=== PATIENT | female | born 1990 | race Caucasian/White ===

== ENCOUNTER 2023-04-14 13:13 | Observation (INO) | payer MEDICAID ==
[~2023-04-14] VITALS: Ht 152 cm; Wt 67.3 kg
[2023-04-14] MEDS ORDERED: ONDANSETRON 4 MG/2 ML (SDV) Z0FRAN IVP ONE (13:30)
[2023-04-14] MEDS ORDERED: LACTATED RINGERS 1,000 ML IV STA (13:30)
[2023-04-14] MEDS ORDERED: fentaNYL INJ 100 MCG/2 ML AMP IVP STA (13:30)
[2023-04-14] MEDS ORDERED: HYOSCYAMINE 0.125 MG (LEVSIN) TAB SL ONE (13:30)
--- NOTE | 2023-04-14 13:39 | ED Abdominal Pain ---
General Chief Complaint: Abdominal/GI Problems Stated Complaint: DIARRHEA Nursing Triage Note: PT AMB TO [facility] 10 WITH C/O DIARRHIA SINCE YESTERDAY MORNING AND UNABLE TO EAT DUE TO STOMACH PAINS. PT TOOK TUMS WITHOUT RELIEF Source of Information: Patient Exam Limitations: No Limitations History of Present Illness Date Seen by Provider: April 14, 2023 Time Seen by Provider: 13:21 Initial Comments Here with report of upper abdominal pain that she describes as cramping and diarrhea. She has had numerous episodes of diarrhea since yesterday. Has had vomiting this morning. Denies blood in vomit or stool. Denies fever or chills. Never had anything like this before. Does have history of cholecystectomy. She usually smokes but has not been able to smoke today because of the illness. Timing/Duration: 12-24 Hours Severity/Quality: Moderate, Cramping Location: RUQ, LUQ, Epigastric Radiation: No Radiation Activities at Onset: None Modifying Factors: Improves With Defecating; Worsens With Eating; Improves With Vomiting Associated Symptoms: Denies Symptoms Allergies and Home Medications Allergies Coded Allergies: No Known Drug Allergies (Unverified , 04/14/23) Patient Home Medication List Home Medication List Reviewed: Yes Review of Systems Review of Systems Constitutional: No chills, No fever EENTM: No Nose Congestion, No Throat Pain Respiratory: Denies Cough, Denies Shortness of Air Cardiovascular: No Symptoms Reported Gastrointestinal: Abdominal Pain, Diarrhea, Nausea, Vomiting Genitourinary: No Symptoms Reported Musculoskeletal: No back pain, No muscle pain Psychiatric/Neurological: No Symptoms Reported Past Riqywck-Lptbwz-Llfloo Hx Patient Social History Tobacco Use?: Yes Tobacco type used: Cigarettes Substance use?: No Alcohol Use?: Yes Alcohol Frequency: Once in a while Immunizations Up To Date First/Initial COVID19 Vaccinat: YES Second COVID19 Vaccination Harrison: YES Past Medical History Surgery/Hospitalization HX: RITA, TONSILS Gallbladder, Tonsillectomy Respiratory: No Cardiac: No Neurological: No Gastrointestinal: No Musculoskeletal: No Family Medical History Reviewed Nursing Family Hx Physical Exam Vital Signs Vital Signs - First Documented 04/14/23 13:23 Temp 36.1 Pulse 88 Resp 18 B/P (MAP) 97/70 (79) Pulse Ox 99 O2 Delivery Room Air Capillary Refill : Height/Weight/BMI Height: '" Weight: lbs. oz. kg; 31.00 BMI Method: General Appearance: WD/WN, no apparent distress Neck: full range of motion, supple Respiratory: lungs clear, normal breath sounds Cardiovascular: regular rate, rhythm, no murmur Gastrointestinal: normal bowel sounds, soft; No guarding, No rebound; tenderness Extremities: non-tender, normal inspection Back: normal inspection, no CVA tenderness, no vertebral tenderness Neurologic/Psychiatric: alert, oriented x 3 Skin: normal color, warm/dry Focused Exam Lactate Level 04/14/23 15:24: Lactic Acid Level 1.47 Lactic Acid Level Laboratory Tests Test 04/14/23 15:24 Lactic Acid Level 1.47 MMOL/L (0.50-2.00) Progress/Results/Core Measures Results/Orders Lab Results Laboratory Tests Test 04/14/23 13:25 04/14/23 14:22 04/14/23 15:24 Range/Units White Blood Count 15.6 H 4.3-11.0 10^3/uL Red Blood Count 4.48 3.80-5.11 10^6/uL Hemoglobin 13.5 11.5-16.0 g/dL Hematocrit 39 35-52 % Mean Corpuscular Volume 87 80-99 fL Mean Corpuscular Hemoglobin 30 25-34 pg Mean Corpuscular Hemoglobin Concent 35 32-36 g/dL Red Cell Distribution Width 12.7 10.0-14.5 % Platelet Count 265 130-400 10^3/uL Mean Platelet Volume 9.9 9.0-12.2 fL Immature Granulocyte % (Auto) 0 % Neutrophils (%) (Auto) 87 H 42-75 % Lymphocytes (%) (Auto) 9 L 12-44 % Monocytes (%) (Auto) 4 0-12 % Eosinophils (%) (Auto) 0 0-10 % Basophils (%) (Auto) 0 0-10 % Neutrophils # (Auto) 13.5 H 1.8-7.8 10^3/uL Lymphocytes # (Auto) 1.4 1.0-4.0 10^3/uL Monocytes # (Auto) 0.5 0.0-1.0 10^3/uL Eosinophils # (Auto) 0.0 0.0-0.3 10^3/uL Basophils # (Auto) 0.0 0.0-0.1 10^3/uL Immature Granulocyte # (Auto) 0.1 0.0-0.1 10^3/uL Neutrophils % (Manual) 86 % Lymphocytes % (Manual) 10 % Monocytes % (Manual) 4 % Eosinophils % (Manual) 0 % Basophils % (Manual) 0 % Band Neutrophils 0 % Blood Morphology Comment NORMAL Sodium Level 134 L 135-145 MMOL/L Potassium Level 3.4 L 3.6-5.0 MMOL/L Chloride Level 102 98-107 MMOL/L Carbon Dioxide Level 19 L 21-32 MMOL/L Anion Gap 13 5-14 MMOL/L Blood Urea Nitrogen 9 7-18 MG/DL Creatinine 0.84 0.60-1.30 MG/DL Estimat Glomerular Filtration Rate 95 BUN/Creatinine Ratio 11 Glucose Level 104 70-105 MG/DL Calcium Level 9.8 8.5-10.1 MG/DL Corrected Calcium 9.6 8.5-10.1 MG/DL Magnesium Level 1.8 1.6-2.4 MG/DL Total Bilirubin 0.4 0.1-1.0 MG/DL Aspartate Amino Transf (AST/SGOT) 13 5-34 U/L Alanine Aminotransferase (ALT/SGPT) 13 0-55 U/L Alkaline Phosphatase 73 40-136 U/L C-Reactive Protein High Sensitivity 14.97 H 0.00-0.50 MG/DL Total Protein 7.3 6.4-8.2 GM/DL Albumin 4.2 3.2-4.5 GM/DL Lipase 29 8-78 U/L Serum Test, Qualitative NEGATIVE NEGATIVE Urine Color ORANGE Urine Clarity CLOUDY Urine pH 6.0 5-9 Urine Specific [place] >=1.030 1.016-1.022 Urine Protein 2+ H NEGATIVE Urine Glucose (UA) NEGATIVE NEGATIVE Urine Ketones 1+ H NEGATIVE Urine Nitrite NEGATIVE NEGATIVE Urine Bilirubin 1+ H NEGATIVE Urine Urobilinogen 0.2 < = 1.0 MG/DL Urine Leukocyte Esterase TRACE H NEGATIVE Urine RBC (Auto) 3+ H NEGATIVE Urine RBC 50-100 H /HPF Urine WBC NONE /HPF Urine Squamous Epithelial Cells RARE /HPF Urine Crystals NONE /LPF Urine Bacteria NEGATIVE /HPF Urine Casts NONE /LPF Urine Mucus NEGATIVE /LPF Urine Culture Indicated NO Lactic Acid Level 1.47 0.50-2.00 MMOL/L My Orders Orders - BUZZ STODDARD MD Cbc With Automated Diff (04/14/23 13:30) Comprehensive Metabolic Panel (04/14/23 13:30) Hs C Reactive Protein (04/14/23 13:30) Magnesium (04/14/23 13:30) Ua Culture If Indicated (04/14/23 13:30) Ondansetron Injection (Zofran Injectio (04/14/23 13:30) Lactated Ringers (Lr 1000 Ml Iv Solution (04/14/23 13:30) Hyoscyamine Sl Tablet (Levsin Sl Tablet) (04/14/23 13:30) Ed Iv/Invasive Line Start (04/14/23 13:30) Fentanyl Inj (Sublimaze Injection) (04/14/23 13:30) Hcg,Qualitative Serum (04/14/23 13:40) Lipase (04/14/23 13:40) Manual Differential (04/14/23 13:25) Ct Abdomen/Pelvis W (04/14/23 14:17) Iohexol Injection (Omnipaque 350 Mg/Ml 1 (04/14/23 14:30) Received Contrast (Hold Metformin- Contr (04/14/23 14:30) Ns (Ivpb) (Sodium Chloride 0.9% Ivpb Bag (04/14/23 14:30) Lactic Acid Analyzer (04/14/23 15:14) Blood Culture (04/14/23 15:14) Ed Iv/Invasive Line Start (04/14/23 15:14) Ns Iv 1000 Ml (Sodium Chloride 0.9%) (04/14/23 15:15) Ceftriaxone Iv/Im (Rocephin Iv/Im) (04/14/23 15:22) Metronidazole 500mg/100ml Ivpb (Flagyl 5 (04/14/23 15:30) Ed Admission (Communication) (04/14/23 15:22) Code/Resuscitation (04/14/23 15:22) Medications Given in ED Current Medications Medications Dose Ordered Sig/Mireya Route Start Time Stop Time Status Last Admin Dose Admin Hyoscyamine Sulfate 0.125 mg ONCE ONCE SL 04/14/23 13:30 04/14/23 13:32 DC 04/14/23 13:41 0.125 MG Iohexol 100 ml ONCE ONCE IV 04/14/23 14:30 04/14/23 14:31 DC 04/14/23 14:29 80 ML Metronidazole 100 ml @ 100 mls/hr ONCE ONCE IV 04/14/23 15:30 04/14/23 16:29 DC 04/14/23 16:13 100 MLS/HR Ondansetron HCl 4 mg ONCE ONCE IVP 04/14/23 13:30 04/14/23 13:32 DC 04/14/23 13:41 4 MG Sodium Chloride 100 ml ONCE ONCE IV 04/14/23 14:30 04/14/23 14:31 DC 04/14/23 14:29 100 ML Sodium Chloride 1,000 ml @ 0 mls/hr Q0M ONCE IV 04/14/23 15:15 04/14/23 15:19 DC 04/14/23 15:36 1,000 MLS/HR Vital Signs/I&O 04/14/23 13:23 Temp 36.1 Pulse 88 Resp 18 B/P (MAP) 97/70 (79) Pulse Ox 99 O2 Delivery Room Air Blood Pressure Mean: 79 Progress Progress Note : Progress Note Seen and evaluated. IV, labs including CBC, CMP, magnesium and lipase ordered. We will check CRP as well. UA ordered. Normal saline 1 L bolus. Zofran 4 mg IV, Levsin 0.125 mg p.o. and fentanyl 50 mcg IV ordered. Monitor patient. Differential diagnosis includes pancreatitis, bowel inflammation, viral or bacterial enteritis, electrolyte abnormality, dehydration 1417: CBC reviewed and shows elevated white count. Chemistries reviewed and shows slight decrease in potassium but marked increase in CRP. Normal serum creatinine and LFTs. UA does not show any indication of infection. Lipase is negative. We will go ahead and get CT abdomen and pelvis with contrast given the marked increase in white count and CRP. Patient's pain is somewhat improved now. Monitor patient. 1450: Thickening of colon noted without free air or abscess on CT abdomen pelvis on my interpretation. Pending radiology report. 1520: I did discuss the case with Dr. Byrd as CT sc scan results note pancolitis per radiology report. Dr. Byrd is on-call for surgery. We discussed these results. Given that she is still having the cramping, although better, she would benefit from further fluid management and antibiotics given the elevated white count and CT findings. He agrees. I have ordered blood cultures and lactic acid due to concerns for sepsis. We will initiate Rocephin 1 g IV and Flagyl 500 mg IV after blood cultures drawn. I have ordered repeat fluid bolus with normal saline 1 L bolus. This will bring her to close to 30 mL/kg and should be an adequate amount of fluids. I do anticipate her lactic acid will be elevated due to vomiting and volume depletion but she does not show signs of severe sepsis or septic shock. I did discuss admission with the patient and friend and they agree to admission. I did discuss the case with Dr. Puente who is on-call for [facility] service and she accepts patient for admission, observation status. Patient request full code. Diagnostic Imaging Diagonstic Imaging: CT Plain Films/CT/US/NM/MRI: abdomen, pelvis Comments [facility], [place] NAME: CANDIE ESPOSITO [employer] REC#: [id number] PT STATUS: REG ER : 1990 PHYSICIAN: BUZZ STODDARD MD ADMIT DATE: 04/14/23/ER Draft Date of Exam:04/14/23 CT ABDOMEN/PELVIS W EXAMINATION: CT abdomen and pelvis with intravenous contrast. TECHNIQUE: Multiple contiguous axial images were obtained through the abdomen and pelvis after the uneventful administration of intravenous contrast. All CT scans use one or more of the following dose optimizing techniques: automated exposure control, MA and/or KvP adjustment based on patient size and exam type or iterative reconstruction. HISTORY: Abdominal pain COMPARISON: None available. FINDINGS: Limited views of the lower thorax are unremarkable. The liver is normal without focal lesion. There is no biliary ductal dilation. Gallbladder is absent. Pancreas is normal. Spleen is normal. Adrenal glands are normal. The kidneys are normal. There is no hydronephrosis. Urinary bladder is normal. There is pancolonic wall thickening with mucosal hyperenhancement and surrounding stranding in keeping with colitis. There is a lipoma in the subcutaneous tissues of the right back. No free fluid or air. No abdominal or pelvic lymphadenopathy. Aorta is normal in caliber without aneurysm. There are no suspicious osseus lesions. IMPRESSION: 1. Pancolitis which may be infectious or secondary to inflammatory bowel disease. Dictated on workstation # [id number] Dict: 04/14/23 1443 Trans: 04/14/23 1449 [facility] [id number] Interpreted by: STEPHANIE MCNEIL MD Electronically signed by: Departure Communication (Admissions) Time/Spoke to Admitting Phy: 15:19 Time/Spoke to Consulting Phy: 15:15 Impression Primary Impression: Pancolitis Additional Impression: Nausea vomiting and diarrhea Disposition: ADMITTED INPATIENT Condition: Stable Admissions Decision to Admit Reason: Admit from ER (General) Decision to Admit/Date: April 14, 2023 Time/Decision to Admit Time: 15:19 Departure-Patient Inst. Referrals: GEE GAMBOA APRN (PCP/Family) Primary Care Physician BUZZ STODDARD MD April 14, 2023 13:39
[2023-04-14 13:41] LABS: BASOPHILS % (AUTO) 0 % (0-10); EOSINOPHILS % (AUTO) 0 % (0-10); HEMATOCRIT 39 % (35-52); HEMOGLOBIN 13.5 g/dL (11.5-16.0); LYMPHOCYTES # (AUTO) 1.4 10^3/uL (1.0-4.0); LYMPHOCYTES % (AUTO) 9 % (12-44); MEAN CORPUSCULAR HEMOGLOBIN 30 pg (25-34); MEAN CORPUSCULAR HGB CONC 35 g/dL (32-36); MEAN CORPUSCULAR VOLUME 87 fL (80-99); MEAN PLATELET VOLUME 9.9 fL (9.0-12.2); MONOCYTES # (AUTO) 0.5 10^3/uL (0.0-1.0); MONOCYTES % (AUTO) 4 % (0-12); NEUTROPHILS # (AUTO) 13.5 10^3/uL (1.8-7.8); NEUTROPHILS % (AUTO) 87 % (42-75); PLATELET COUNT 265 10^3/uL (130-400); WHITE BLOOD COUNT 15.6 10^3/uL (4.3-11.0)
[2023-04-14 13:53] LABS: ALBUMIN 4.2 GM/DL (3.2-4.5); POTASSIUM 3.4 MMOL/L (3.6-5.0)
[2023-04-14 13:54] LABS: CALCIUM 9.8 MG/DL (8.5-10.1)
[2023-04-14 13:56] LABS: TOTAL PROTEIN 7.3 GM/DL (6.4-8.2)
[2023-04-14 13:57] LABS: BILIRUBIN,TOTAL 0.4 MG/DL (0.1-1.0)
[2023-04-14 13:59] LABS: CREATININE SERUM 0.84 MG/DL (0.60-1.30)
[2023-04-14 14:02] LABS: BAND NEUTROPHILS 0 %; BASOPHILS % (MANUAL) 0 %; EOSINOPHILS % (MANUAL) 0 %; LYMPHOCYTES % (MANUAL) 10 %; MAGNESIUM 1.8 MG/DL (1.6-2.4); MONOCYTES % (MANUAL) 4 %; NEUTROPHILS % (MANUAL) 86 %; RBC MORPH NORMAL
[2023-04-14] MEDS ORDERED: NS 100 ML (IVPB) BAG IV ONE (14:30)
[2023-04-14] MEDS ORDERED: HOLD METFORMIN - RECEIVED CONTRAST 20 ML VIAL IV SCH (14:30)
[2023-04-14] MEDS ORDERED: IOHEXOL 350 MG/ML 100 ML (OMNIPAQUE 350) VIAL IV ONE (14:30)
[2023-04-14 14:34] LABS: CLARITY,URINE CLOUDY; COLOR,URINE ORANGE; GLUCOSE, URINE (UA) NEGATIVE (NEGATIVE); KETONES,URINE 1+ (NEGATIVE); LEUKOCYTE ESTERASE ,URINE TRACE (NEGATIVE); NITRITE,URINE NEGATIVE (NEGATIVE); PROTEIN,URINE 2+ (NEGATIVE)
[2023-04-14 14:44] LABS: BILIRUBIN,URINE 1+ (NEGATIVE); RBC,URINE 50-100 /HPF
[2023-04-14 14:45] LABS: BACTERIA,URINE NEGATIVE /HPF; SQUAMOUS EPITHELIAL CELL,UR RARE /HPF
--- NOTE | 2023-04-14 14:51 | Diagnostic Imaging Report ---
EXAMINATION: CT abdomen and pelvis with intravenous contrast. TECHNIQUE: Multiple contiguous axial images were obtained through the abdomen and pelvis after the uneventful administration of intravenous contrast. All CT scans use one or more of the following dose optimizing techniques: automated exposure control, MA and/or KvP adjustment based on patient size and exam type or iterative reconstruction. HISTORY: Abdominal pain COMPARISON: None available. FINDINGS: Limited views of the lower thorax are unremarkable. The liver is normal without focal lesion. There is no biliary ductal dilation. Gallbladder is absent. Pancreas is normal. Spleen is normal. Adrenal glands are normal. The kidneys are normal. There is no hydronephrosis. Urinary bladder is normal. There is pancolonic wall thickening with mucosal hyperenhancement and surrounding stranding in keeping with colitis. There is a lipoma in the subcutaneous tissues of the right back. No free fluid or air. No abdominal or pelvic lymphadenopathy. Aorta is normal in caliber without aneurysm. There are no suspicious osseus lesions. IMPRESSION: 1. Pancolitis which may be infectious or secondary to inflammatory bowel disease. Dictated by: Dictated on workstation # [id number]
[2023-04-14] MEDS ORDERED: NS IV 1000 ML 1,000 ML IV ONE (15:15)
[2023-04-14] MEDS ORDERED: cefTRIAXone IV/IM 1,000 MG in NS (IVPB) 50 ML IV STA (15:22)
[2023-04-14] MEDS ORDERED: metroNIDAZOLE 500MG/100ML IVPB 100 ML IV ONE (15:30)
[2023-04-14] MEDS ORDERED: ONDANSETRON 4 MG/2 ML (SDV) Z0FRAN IV PRN (16:45)
[2023-04-14] MEDS ORDERED: CALCIUM CARBONATE 500 MG (TUMS) TAB.CHEW PO PRN (16:45)
[2023-04-14] MEDS ORDERED: ANTACID SUSP 30 ML UDC (MYLANTA) PO PRN (16:45)
[2023-04-14] MEDS ORDERED: polyethylene glycoL POWDER 17 GM (MIRALAX) PACK PO PRN (16:45)
[2023-04-14] MEDS ORDERED: ALPRAZolam 0.5 MG (XANAX) TAB PO PRN (16:45)
[2023-04-14] MEDS ORDERED: diphenhydrAMINE 50 MG/ML INJ (BENADRYL) IVP PRN (16:45)
[2023-04-14] MEDS ORDERED: ONDANSETRON 4 MG (ZOFRAN) ORAL DISSOLVE TAB PO PRN (16:45)
[2023-04-14] MEDS ORDERED: HYDROmorphone 2 MG/ML VIAL (DILAUDID) IV PRN (16:45)
[2023-04-14] MEDS ORDERED: diphenhydrAMINE 25 MG TAB (BENADRYL) PO PRN (16:45)
[2023-04-14] MEDS ORDERED: MELATONIN 3 MG TABLET PO PRN (16:45)
[2023-04-14] MEDS ORDERED: ACETAMINOPHEN 325 MG TABLET PO PRN (16:45)
[2023-04-14] MEDS ORDERED: MILK OF MAGNESIA 400 MG/5 ML 30 ML UDC PO PRN (16:45)
[2023-04-14] MEDS ORDERED: BISACODYL 10 MG SUPP (DULCOLAX) PR PRN (16:45)
[2023-04-14] MEDS ORDERED: LACTULOSE SYRUP 10GM/15ML (ENULOSE) 30ML UDC PO PRN (16:45)
[2023-04-14 16:51] VITALS: BP 92/64
[2023-04-14] MEDS: ENOXAPARIN 40 MG/0.4 ML (LOVENOX) SYR SC SCH (18:01)
[2023-04-14] MEDS: NS IV 1000 ML 1,000 ML IV SCH (18:01)
[2023-04-14] MEDS ORDERED: RT-ALBUTEROL/IPRATROPIUM 3 ML (DUONEB) VIAL INH PRN (18:45)
[2023-04-14 19:11] VITALS: BP 91/59
[2023-04-14] MEDS: DOCUSATE SODIUM 100 MG (COLACE) CAP PO SCH (19:50)
[2023-04-14] MEDS: SENNOSIDES 8.6 MG (SENOKOT) TAB PO SCH (19:50)
[2023-04-14] MEDS: metroNIDAZOLE 500MG/100ML IVPB 250 MG in EMPTY IV BAG (PVC) 1 EA IV SCH (22:28)
[2023-04-14 23:56] VITALS: BP 86/53
[2023-04-15] MEDS: NS IV 1000 ML 1,000 ML IV SCH (01:32)
[2023-04-15 03:33] VITALS: BP 93/56
--- NOTE | 2023-04-15 05:21 | History & Physical-Hospitalist ---
History of Present Illness HPI/Chief Complaint CC: Abdominal pain from colitis HPI: This is a 33yoWF transitioning to a male named "Inocente" who presented to the ER with abdominal pain and N/V and found to have pancolitis. IV abx initiated under direction of Dr Byrd. No nausea has occurred since admit. Pain is controlled. Labs improved. No other major issues. Source: patient, RN/MD Exam Limitations: no limitations Date Seen 04/15/23 Time Seen by a Provider: 10:00 Attending Physician Elizabeth Andres Aprn PCP Admitting Physician: Yola Puente DO Attending Physician: Yola Puente DO Referring Physician Date of Admission April 14, 2023 at 16:30 Home Medications & Allergies Home Medications Reviewed patient Home Medication Reconciliation performed by pharmacy medication reconciliations hvac/r service technician and/or nursing. Patients Allergies have been reviewed. Allergies Allergies Coded Allergies No Known Drug Allergies (Unverified04/14/23) Past Wmnhimr-Eayxsm-Xbkxuj Hx Patient Social History Marrital Status: single Employed/Student: unemployed Tobacco Use?: Yes Tobacco type used: Cigarettes Smoking Status: Current Everyday Smoker Use of E-Cig and/or Vaping dev: No Substance use?: No Alcohol Use?: Yes Alcohol Frequency: Rarely Pt feels they are or have been: No Immunizations Up To Date First/Initial COVID19 Vaccinat: YES Second COVID19 Vaccination Harrison: YES Current Status status: No status: No Advance Directives: No Communicates: Verbally Primary Language: Maltese Preferred Spoken Language: Maltese Is interpretation needed?: No Sensory deficits: Vision impairment Past Medical History Surgeries: Gallbladder, Tonsillectomy Family Medical History Reviewed Nursing Family Hx Review of Systems Constitutional: see HPI, malaise, weakness Gastrointestinal: abdominal pain, loss of appetite, nausea, vomiting Physical Exam Physical Exam Vital Signs Vital Signs - First Documented 04/14/23 04/14/23 13:23 18:38 Temp 36.1 Pulse 88 Resp 18 B/P (MAP) 97/70 (79) Pulse Ox 99 O2 Delivery Room Air FiO2 21 Capillary Refill : Height, Weight, BMI Height: '" Weight: lbs. oz. kg; 29.12 BMI Method: General Appearance: No Apparent Distress Eyes: Right Eye Normal Inspection, Right Eye PERRL HEENT: PERRL/EOMI, Normal ENT Inspection, Pharynx Normal, Moist Mucous Membranes Neck: Full Range of Motion, Normal Inspection, Non Tender Respiratory: Chest Non Tender, Lungs Clear, Normal Breath Sounds, No Accessory Muscle Use, No Respiratory Distress Cardiovascular: Regular Rate, Rhythm, No Edema, No Gallop, No JVD, No Murmur, Normal Peripheral Pulses Gastrointestinal: Normal Bowel Sounds, No Organomegaly, No Pulsatile Mass, Tenderness Back: Normal Inspection, No CVA Tenderness, No Vertebral Tenderness Extremity: Normal Capillary Refill, Normal Inspection, Normal Range of Motion, Non Tender, No Calf Tenderness, No Pedal Edema Neurologic/Psychiatric: Alert, Oriented x3, No Motor/Sensory Deficits, Normal Mood/Affect Skin: Normal Color, Warm/Dry Lymphatic: No Adenopathy Results Results/Procedures Labs Laboratory Tests 04/14/23 13:25 04/15/23 05:07 Patient resulted labs reviewed. Assessment/Plan Admission Diagnosis Assessment: Pancolitis Abdominal pain Dehydration N/V Female transitioning to a male Plan: IVF IV abx Pain control Lovenox Admission Status: Observation YOLA PUENTE DO April 15, 2023 05:21
[2023-04-15] MEDS: metroNIDAZOLE 500MG/100ML IVPB 250 MG in EMPTY IV BAG (PVC) 1 EA IV SCH ×2 (05:40→14:16)
[2023-04-15 05:44] LABS: BASOPHILS % (AUTO) 0 % (0-10); EOSINOPHILS # (AUTO) 0.1 10^3/uL (0.0-0.3); EOSINOPHILS % (AUTO) 1 % (0-10); HEMATOCRIT 35 % (35-52); HEMOGLOBIN 11.5 g/dL (11.5-16.0); LYMPHOCYTES # (AUTO) 1.2 10^3/uL (1.0-4.0); LYMPHOCYTES % (AUTO) 13 % (12-44); MEAN CORPUSCULAR HEMOGLOBIN 30 pg (25-34); MEAN CORPUSCULAR HGB CONC 33 g/dL (32-36); MEAN CORPUSCULAR VOLUME 90 fL (80-99); MEAN PLATELET VOLUME 10.9 fL (9.0-12.2); MONOCYTES # (AUTO) 0.7 10^3/uL (0.0-1.0); MONOCYTES % (AUTO) 8 % (0-12); NEUTROPHILS % (AUTO) 77 % (42-75); PLATELET COUNT 205 10^3/uL (130-400)
[2023-04-15 06:12] LABS: ALBUMIN 3.1 GM/DL (3.2-4.5); BILIRUBIN,TOTAL 0.2 MG/DL (0.1-1.0); CREATININE SERUM 0.75 MG/DL (0.60-1.30); POTASSIUM 3.1 MMOL/L (3.6-5.0); TOTAL PROTEIN 5.5 GM/DL (6.4-8.2)
[2023-04-15 07:14] VITALS: BP 99/65
--- NOTE | 2023-04-15 07:58 | Consultation - Surgery ---
FINN BHATIA 04/15/23 0758: History of Present Illness History of Present Illness Patient Consulted On(valentina/time) 04/15/23 07:50 Date Seen by Provider: April 15, 2023 Time Seen by Provider: 07:10 Reason for Visit: nausea, vomiting, diarrhea, abd pain History of Present Illness Consult for Dr. Puente CC: n/v/d, and abd pain Dipika Mart who goes by Inocente, is a 33yo female who presents with abdominal pain since two days ago, where it was causing her to feel nauseas and vomit, it is associated with moderate diarrhea, all of which she denied seeing blood in any of the fluids. She said that not eating and defecating alleviated the pain, and that nothing really aggravated her symptoms more, the pain just came in waves and wasnt really constant. Today after having pain meds, she rates abd pain a 0/10 and a 3/10 when applying deep pressure to the lower quadrants. She denies fevers and chills, headaches, shortness of breath. She indicated she did take recent multiple abx at the end of march when she went to [facility] walk in clinic for an infection of her right index finger. Allergies and Home Medications Allergies Coded Allergies: No Known Drug Allergies (Unverified , 04/14/23) Patient Home Medication List Acetaminophen (Tylenol Extra Strength) 500 Mg Tablet, 1,000 MG PO Q8H PRN for PAIN-MILD (1-4), (Reported) Entered as Reported by: MARIAN ROCHA on 04/15/23 1006 Last Action: Reviewed Cetirizine HCl (Cetirizine HCl) 10 Mg Tablet, 10 MG PO DAILY, (Reported) Entered as Reported by: MARIAN ROCHA on 04/15/23 1005 Last Action: Reviewed Fluticasone Propionate (Fluticasone Propionate) 50 Mcg/Actuation [place].susp, 1 SPRAY NS DAILY, (Reported) Entered as Reported by: MARIAN ROCHA on 04/15/23 1006 Last Action: Reviewed Past Enwqxfm-Qwmdnf-Hsanyy Hx Patient Social History Smoking Status: Current Everyday Smoker Alcohol Use?: Yes Have you traveled recently?: No Surgeries Surgeries: Gallbladder, Tonsillectomy Respiratory History of Respiratory Disorde: No Cardiovascular History of Cardiac Disorders: No Neurological History of Neurological Disord: No Gastrointestinal History of Gastrointestinal Di: No Musculoskeletal History of Musculoskeletal Dis: No Review of Systems-General Constitutional: No chills, No diaphoresis, No dizziness, No fever EENTM: No double vision, No throat pain Respiratory: cough; No dyspnea on exertion, No short of breath Cardiovascular: No chest pain, No edema, No palpitations Gastrointestinal: abdominal pain (RLQ,LLQ) Musculoskeletal: No back pain, No joint pain Skin: No change in color, No pruritus, No rash Psychiatric/Neurological: Denies Headache, Denies Numbness, Denies Paresthesia Physical Exam-General Problems Physical Exam Vital Signs Vital Signs - First Documented 04/14/23 04/14/23 13:23 18:38 Temp 36.1 Pulse 88 Resp 18 B/P (MAP) 97/70 (79) Pulse Ox 99 O2 Delivery Room Air FiO2 21 Capillary Refill : General Appearance: WD/WN, no apparent distress HEENT: PERRL/EOMI; No pale conjunctivae (R), No pale conjunctivae (L), No photophobia Neck: non-tender, supple Respiratory: chest non-tender, lungs clear, no respiratory distress, no acc essory muscle use Cardiovascular: regular rate, rhythm, no edema, no murmur Peripheral Pulses: 2+ Dorsalis Pedis (R), 2+ Left Dors-Pedis (L), 2+ Radial Pulses (R), 2+ Radial Pulses (L) Gastrointestinal: soft, no pulsatile mass; No distended, No guarding, No rebound; tenderness (lower quadrants 3/10); No hernia Back: no CVA tenderness, no vertebral tenderness Extremities: non-tender, no pedal edema, no calf tenderness, normal capillary refill Neurologic/Psychiatric: alert, oriented x 3 Skin: warm/dry; No ecchymosis, No rash Data Review Labs Laboratory Tests 04/14/23 13:25: White Blood Count 15.6H, Red Blood Count 4.48, Hemoglobin 13.5, Hematocrit 39, Mean Corpuscular Volume 87, Mean Corpuscular Hemoglobin 30, Mean Corpuscular Hemoglobin Concent 35, Red Cell Distribution Width 12.7, Platelet Count 265, Mean Platelet Volume 9.9, Immature Granulocyte % (Auto) 0, Neutrophils (%) (Auto) 87H, Lymphocytes (%) (Auto) 9L, Monocytes (%) (Auto) 4, Eosinophils (%) (Auto) 0, Basophils (%) (Auto) 0, Neutrophils # (Auto) 13.5H, Lymphocytes # (Auto) 1.4, Monocytes # (Auto) 0.5, Eosinophils # (Auto) 0.0, Basophils # (Auto) 0.0, Immature Granulocyte # (Auto) 0.1, Neutrophils % (Manual) 86, Lymphocytes % (Manual) 10, Monocytes % (Manual) 4, Eosinophils % (Manual) 0, Basophils % (Manual) 0, Band Neutrophils 0, Blood Morphology Comment NORMAL, Sodium Level 134L, Potassium Level 3.4L, Chloride Level 102, Carbon Dioxide Level 19L, Anion Gap 13, Blood Urea Nitrogen 9, Creatinine 0.84, Estimat Glomerular Filtration Rate 95, BUN/Creatinine Ratio 11, Glucose Level 104, Calcium Level 9.8, Correcte d Calcium 9.6, Magnesium Level 1.8, Total Bilirubin 0.4, Aspartate Amino Transf (AST/SGOT) 13, Alanine Aminotransferase (ALT/SGPT) 13, Alkaline Phosphatase 73, C-Reactive Protein High Sensitivity 14.97H, Total Protein 7.3, Albumin 4.2, Lipase 29, Serum Test, Qualitative NEGATIVE 04/14/23 14:22: Urine Color ORANGE, Urine Clarity CLOUDY, Urine pH 6.0, Urine Specific [place] >=1.030, Urine Protein 2+H, Urine Glucose (UA) NEGATIVE, Urine Ketones 1+H, Urine Nitrite NEGATIVE, Urine Bilirubin 1+H, Urine Urobilinogen 0.2, Urine Leukocyte Esterase TRACEH, Urine RBC (Auto) 3+H, Urine RBC 50-100H, Urine WBC NONE, Urine Squamous Epithelial Cells RARE, Urine Crystals NONE, Urine Bacteria NEGATIVE, Urine Casts NONE, Urine Mucus NEGATIVE, Urine Culture Indicated NO 04/14/23 15:24: Lactic Acid Level 1.47 04/15/23 05:07: White Blood Count 9.0, Red Blood Count 3.89, Hemoglobin 11.5, Hematocrit 35, Mean Corpuscular Volume 90, Mean Corpuscular Hemoglobin 30, Mean Corpuscular Hemoglobin Concent 33, Red Cell Distribution Width 12.9, Platelet Count 205, Mean Platelet Volume 10.9, Immature Granulocyte % (Auto) 0, Neutrophils (%) (Auto) 77H, Lymphocytes (%) (Auto) 13, Monocytes (%) (Auto) 8, Eosinophils (%) (Auto) 1, Basophils (%) (Auto) 0, Neutrophils # (Auto) 7.0, Lymphocytes # (Auto) 1.2, Monocytes # (Auto) 0.7, Eosinophils # (Auto) 0.1, Basophils # (Auto) 0.0, Immature Granulocyte # (Auto) 0.0, Sodium Level 139, Potassium Level 3.1L, Chloride Level 110H, Carbon Dioxide Level 20L, Anion Gap 9, Blood Urea Nitrogen 5L, Creatinine 0.75, Estimat Glomerular Filtration Rate 108, BUN/Creatinine Rat io 7, Glucose Level 96, Calcium Level 8.0L, Corrected Calcium 8.7, Total Bilirubin 0.2, Aspartate Amino Transf (AST/SGOT) 10, Alanine Aminotransferase (ALT/SGPT) 9, Alkaline Phosphatase 52, Total Protein 5.5L, Albumin 3.1L Assessment/Plan Assessment/Plan Assessment/Plan Pancolitis Luekocytosis (9 today down from 15.6 yesterday) Nausea Vomiting Diarrhea * continue ceftriaxone and metronidazole protocol * pain and nausea med regimen PRN * soft diet * stool culture * Possible colonoscopy to rule our IBD if symtpoms dont improve ANDREAS MIMS DO 04/15/23 1136: History of Present Illness History of Present Illness History of Present Illness Consult requested by Dr. Puente for colitis. Patient is a 33 female with abdominal pain for 2 days. Is over majority of abdomen. It comes and goes. WIll have pain and then have diarrhea. Having greater than 5 liquid stools per day. No blood. Pain was moderate now pain is improving and only with pressure on the abdomen. Also with Nausea and emesis. No blood in emesis. Nothing knows of makes better or worse. Tolerating clears. Had ct scan consistent with pancolitis. Allergies and Home Medications Allergies Coded Allergies: No Known Drug Allergies (Unverified , 04/14/23) Patient Home Medication List Home Medication List Reviewed: Yes Acetaminophen (Tylenol Extra Strength) 500 Mg Tablet, 1,000 MG PO Q8H PRN for PAIN-MILD (1-4), (Reported) Entered as Reported by: MARIAN ROCHA on 04/15/23 1006 Last Action: Reviewed Cetirizine HCl (Cetirizine HCl) 10 Mg Tablet, 10 MG PO DAILY, (Reported) Entered as Reported by: MARIAN ROCHA on 04/15/23 1005 Last Action: Reviewed Fluticasone Propionate (Fluticasone Propionate) 50 Mcg/Actuation [place].susp, 1 S PRAY NS DAILY, (Reported) Entered as Reported by: MARIAN ROCHA on 04/15/23 100 Last Action: Reviewed Past Wmafgsp-Xifyfr-Ngudlp Hx Reviewed Nursing Assessment Reviewed/Agree w Nursing PMH: Yes Family Medical History Significant Family History: No Pertinent Family Hx Review of Systems-General Constitutional: No chills, No diaphoresis, No dizziness, No fever EENTM: No blurred vision, No double vision, No throat pain Respiratory: cough; No dyspnea on exertion, No short of breath Gastrointestinal: abdominal pain (RLQ,LLQ), diarrhea, nausea, vomiting Genitourinary: No decreased output, No discharge Musculoskeletal: No back pain, No joint pain Skin: No change in color, No rash Psychiatric/Neurological: Denies Anxiety, Denies Depressed, Denies Emotional Problems All Other Systems Reviewed Negative Unless Noted: Yes (Negative excepted noted.) Physical Exam-General Problems Physical Exam General Appearance: no apparent distress HEENT: PERRL/EOMI, normal ENT inspection Neck: non-tender, supple Respiratory: chest non-tender, no respiratory distress, no accessory muscle use Cardiovascular: regular rate, rhythm, no JVD Gastrointestinal: soft; No distended, No guarding, No rebound; tenderness (lower quadrants ) Rectal: deferred Back: no CVA tenderness, no vertebral tenderness Extremities: non-tender, no calf tenderness Neurologic/Psychiatric: alert, oriented x 3 Skin: normal color, warm/dry Lymphatic: no adenopathy Assessment/Plan Assessment/Plan Assessment/Plan Pancolitis- infectious vs IBD Luekocytosis (9 today down from 15.6 yesterday) Nausea Vomiting Diarrhea * continue ceftriaxone and metronidazole * pain and nausea med regimen PRN * clear liquids * stool culture * will need colonoscopy in about 8 weeks to evaluate colon once symptoms resolved Supervisory-Addendum Brief Verification & Attestation Participated in pt care: history, MDM, physical Personally performed: exam, history, MDM, supervision of care Care discussed with: Medical Student Procedures: n/a Results interpretation: Verified all documentation Verification and Attestation of Medical Student E/M Service A medical student performed and documented this service in my presence. I reviewed and verified all information documented by the medical student and made modifications to such information, when appropriate. I personally performed the physical exam and medical decision making. Andreas Mims, April 15, 2023,11:38 FINN BHATIA April 15, 2023 07:58 ANDREAS MIMS DO April 15, 2023 11:36
[2023-04-15] MEDS: DOCUSATE SODIUM 100 MG (COLACE) CAP PO SCH ×2 (08:26→19:59)
[2023-04-15] MEDS: SENNOSIDES 8.6 MG (SENOKOT) TAB PO SCH ×2 (08:27→19:59)
[2023-04-15] MEDS ORDERED: NS IV 1000 ML 1,000 ML IV SCH (10:00)
[2023-04-15] MEDS ORDERED: CETI10TA17 PO (10:05)
[2023-04-15] MEDS ORDERED: FLUT16SP22 NS (10:06)
[2023-04-15] MEDS ORDERED: ACET-2267 PO (10:06)
[2023-04-15] MEDS: KCL 20 MEQ TAB (K-DUR) PO SCH ×3 (10:19→18:07)
[2023-04-15 11:19] VITALS: BP 101/67
[2023-04-15] MEDS ORDERED: cefTRIAXone IV/IM 1,000 MG in NS (IVPB) 50 ML IV SCH (15:00)
[2023-04-15 15:32] VITALS: BP 106/51
[2023-04-15] MEDS: ENOXAPARIN 40 MG/0.4 ML (LOVENOX) SYR SC SCH (18:08)
[2023-04-15 19:57] VITALS: BP 113/70
[2023-04-15] MEDS ORDERED: metroNIDAZOLE 500MG/100ML IVPB 100 ML IV SCH (22:00)
== END 2023-04-15 21:00 | disposition left against medical advice (07) ==
LOC: EDUNIT# 13:13 → ER 13:16 → UNDOADMOB 16:30 → 4TH 16:30 → UNDODISOB 04-15 21:00
PROVIDERS: ADMIT Internal Medicine; ATTEND Internal Medicine
DX: K52.89 Other specified noninfective gastroenteritis and colitis (principal); E86.0 Dehydration; D72.829 Elevated white blood cell count, unspecified; F17.210 Nicotine dependence, cigarettes, uncomplicated; F64.0 Transsexualism
CPT/HCPCS: 36415; 74177; 80053; 81000; 83605; 83690; 83735; 84703; 85007; 85025; 85027; 86141; 87040; 94760; 96361; 96372; 96376; G0378

== ENCOUNTER → 2023-06-19 | Outpatient (CLI) | payer MEDICAID ==
[~2023-06-19] MED LIST: ACET-2267 PO; CETI10TA17 PO; FLUT16SP22 NS
== END ==
LOC: PREOP 05:39
PROVIDERS: ATTEND Surgery
DX: Z01.818 Encounter for other preprocedural examination (principal)